=== PATIENT | female | born 1995 | race African-American/Black ===

== ENCOUNTER 2020-08-03 09:30 | Emergency (ER) | payer OTHER ==
[2020-08-03 10:48] LABS: #Eosinphils 0.1 10x3/uL (0.0-0.5); #Monocytes 0.7 10x3/uL (0.0-1.1); #Neutrophils 4.3 10x3/uL (1.5-8.4); %Basophils 0.4 % (0.0-2.0); %Eosinophils 1.2 % (0.0-6.0); %Lymphocytes 24.4 % (18.0-47.0); %Monocytes 10.4 % (0.0-10.0); %Neutrophils 63.3 % (40.0-75.0); Hemoglobin 11.2 g/dL (12.0-15.5); Mean Corpuscular HGB CONC 31.6 g/dL (32.0-36.0); Mean Corpuscular Volume 72.8 fl (81.6-98.3); Mean Platelet Volume 9.9 fl (7.4-10.4); Platelet Count 295 10x3/uL (150-450); RBC Distribution Width 17.2 % (11.5-14.5); Red Blood Cell (RBC) Count 4.86 10x6/uL (3.90-5.03); White Blood Cell (WBC) Count 6.8 10x3/uL (3.5-10.5)
[2020-08-03 11:19] LABS: ALT (SGPT) 12 U/L (8-55); AST (SGOT) 22 U/L (5-34); Albumin 4.2 g/dL (3.5-5.0); Alkaline Phosphatase 79 U/L (40-110); Anion Gap 15 mmol/L (10-20); BUN (Urea Nitrogen) 6 mg/dL (7.0-18.7); Bilirubin, Total 0.5 mg/dL (0.2-1.2); Calc. Creatinine Clearance 0 mL/min (70-130); Calcium 9.7 mg/dL (7.8-10.44); Carbon Dioxide 22 mmol/L (22-29); Chloride 103 mmol/L (98-107); Glucose 87 mg/dL (70-105); Potassium 3.8 mmol/L (3.5-5.1); Protein, Total 8.2 g/dL (6.0-8.3); Sodium 136 mmol/L (136-145)
== END 2020-08-03 11:50 | disposition home or self-care (01) ==
LOC: CSHERS 09:30
DX: O21.9 Vomiting of pregnancy, unspecified (principal); Z20.822 Contact with and (suspected) exposure to COVID-19; O99.011 Anemia complicating pregnancy, first trimester; Z3A.08 8 weeks gestation of pregnancy
CPT/HCPCS: 80053; 85025; 99284

== ENCOUNTER 2020-12-18 11:47 | Day surgery (SDC) | payer OTHER ==
[2020-12-18] MEDS ORDERED: hydrALAZINE 20 MG/ML VIAL SLOW IVP PRN ×2 (12:39→13:00)
[2020-12-18] MEDS ORDERED: Ondansetron PF 4 MG/2 ML Vial IVP PRN (12:40)
[2020-12-18] MEDS ORDERED: Promethazine 25 MG TAB PO PRN (12:40)
[2020-12-18] MEDS ORDERED: Lactated Ringer's 1,000 ML IV SCH (12:45)
[2020-12-18] MEDS ORDERED: Ondansetron ODT 4 MG TAB SL PRN (12:47)
[2020-12-19 01:32] LABS: SARS-CoV-2 PCR by NAA Not Detected (NotDetected)
== END 2020-12-18 17:44 | disposition home health service (06) ==
LOC: CSHLD/OP 11:47
PROVIDERS: ATTEND Family Medicine
DX: O99.891 Other specified diseases and conditions complicating pregnancy (principal); O99.283 Endocrine, nutritional and metabolic diseases complicating pregnancy, third trimester; R11.2 Nausea with vomiting, unspecified; E86.0 Dehydration; Z3A.28 28 weeks gestation of pregnancy; Z20.822 Contact with and (suspected) exposure to COVID-19; Z79.899 Other long term (current) drug therapy
CPT/HCPCS: J2405; U0003; U0005

== ENCOUNTER 2021-02-22 22:41 | Day surgery (SDC) | payer OTHER ==
[2021-02-22 23:21] VITALS: BMI 45.3
[2021-02-22 23:51] LABS: Fetal Membranes Rupture No Membranes Rupture (No Rupture)
[2021-02-23] MEDS ORDERED: hydrALAZINE 20 MG/ML VIAL SLOW IVP PRN (00:33)
== END 2021-02-23 00:13 | disposition home or self-care (01) ==
LOC: CSHLD/OP 22:41
PROVIDERS: ATTEND Family Medicine
DX: O99.891 Other specified diseases and conditions complicating pregnancy (principal); N89.8 Other specified noninflammatory disorders of vagina; Z3A.37 37 weeks gestation of pregnancy
CPT/HCPCS: 84112; 87480; 87510; 87660; 99285

== ENCOUNTER 2021-02-27 10:31 | Outpatient (CLI) | payer OTHER ==
[2021-02-27 17:38] LABS: SARS-CoV-2 PCR by NAA Not Detected (NotDetected)
== END 2021-02-27 10:32 | disposition home or self-care (01) ==
LOC: CSHLAB 10:31
PROVIDERS: ATTEND Family Medicine
DX: Z01.812 Encounter for preprocedural laboratory examination (principal); Z20.822 Contact with and (suspected) exposure to COVID-19
CPT/HCPCS: U0003; U0005

== ENCOUNTER 2021-03-02 08:19 | Inpatient (IN) | payer OTHER ==
[2021-03-02] MEDS ORDERED: Lidocaine 1% (PF) 30 ML VIAL SC PRN (11:03)
[2021-03-02] MEDS ORDERED: Methylergonovine 0.2 MG/ML VIAL IM PRN (11:03)
[2021-03-02] MEDS ORDERED: Butorphanol Tartrate 1 MG/ML VIAL SLOW IVP PRN (11:03)
[2021-03-02] MEDS ORDERED: Carboprost 250 MCG/ML AMP IM PRN (11:03)
[2021-03-02] MEDS ORDERED: NS w/ Oxytocin 30 units 500 ML IV SCH ×2 (11:03)
[2021-03-02] MEDS ORDERED: Ibuprofen 800 MG TAB PO PRN (11:03)
[2021-03-02] MEDS ORDERED: Diphenoxylate HCl/Atropine Tablet PO PRN (11:03)
[2021-03-02] MEDS ORDERED: Lactated Ringer's 1,000 ML IV SCH (11:03)
[2021-03-02] MEDS ORDERED: Promethazine HCl 25 MG/ML VIAL IM PRN ×3 (11:03→23:11)
[2021-03-02] MEDS ORDERED: HYDROcodone/Acetaminophen 5/325 mg Tablet PO PRN ×2 (11:03→23:11)
[2021-03-02] MEDS ORDERED: Acetaminophen 500 MG TAB PO PRN (11:03)
[2021-03-02] MEDS ORDERED: Ondansetron PF 4 MG/2 ML Vial IVP PRN ×3 (11:03→23:11)
[2021-03-02] MEDS ORDERED: NS w/ Oxytocin 30 units 500 ML IVPB SCH (11:03)
[2021-03-02] MEDS ORDERED: Misoprostol 200 MCG TAB PR PRN (11:03)
[2021-03-02] MEDS ORDERED: hydrALAZINE 20 MG/ML VIAL SLOW IVP PRN ×2 (11:03→23:11)
[2021-03-02 11:11] VITALS: BMI 45.4
[2021-03-02] MEDS ORDERED: Lidocaine 2% PF 100 mg/5 ml Syringe ONE (12:00)
[2021-03-02 13:22] LABS: Hemoglobin 10.9 g/dL (12.0-15.5); Mean Corpuscular HGB CONC 33.1 g/dL (32.0-36.0); Mean Corpuscular Hemoglobin 26.5 pg (27.0-33.0); Mean Platelet Volume 10.6 fl (7.4-10.4); Platelet Count 237 10x3/uL (150-450); RBC Distribution Width 16.9 % (11.5-14.5); Red Blood Cell (RBC) Count 4.11 10x6/uL (3.90-5.03); White Blood Cell (WBC) Count 8.2 10x3/uL (3.5-10.5)
[2021-03-02 13:55] LABS: Hep B Surf Ag Non-Reactive S/CO (NonReactive); Syphilis Antibody Nonreactive (Nonreactive); Syphilis Antibody Index 0.04 S/CO (<1.00 Non-Reactive)
[2021-03-02 14:08] LABS: HBSAg Index 0.18 S/CO (0-0.99)
[2021-03-02] MEDS ORDERED: Fentanyl 2 mcg/Bup 0.1% Cadd 100 ML ONE (16:32)
[2021-03-02] MEDS ORDERED: diphenhydrAMINE 50 MG/ML VIAL IVP PRN (16:43)
[2021-03-02] MEDS ORDERED: Lactated Ringer's 500 ML IV PRN (16:43)
[2021-03-02] MEDS ORDERED: Acetaminophen 325 MG TAB PO PRN (16:43)
[2021-03-02] MEDS ORDERED: Hydrocerin (Eucerin) Cream 120 gm Jar TOP PRN (16:43)
[2021-03-02] MEDS ORDERED: Naloxone HCl 0.4 mg/ml Vial IVP PRN ×2 (16:43)
[2021-03-02] MEDS ORDERED: ePHEDrine Sulfate 50 MG/10 ML VIAL SLOW IVP PRN (16:43)
[2021-03-02] MEDS ORDERED: Communication Order-Pharmacy FS SCH (16:45)
[2021-03-02] MEDS ORDERED: Fentanyl 2 mcg/Bupivacaine 0.1% Cassette 100 ML EPIDURAL SCH (16:45)
[2021-03-02] MEDS ORDERED: Bisacodyl 10 MG SUPP PR PRN (23:11)
[2021-03-02] MEDS ORDERED: Benzocaine-Menthol 82.5 ML CAN TOP PRN (23:11)
[2021-03-02] MEDS ORDERED: Milk Of Magnesia 30 ML UDCUP PO PRN (23:11)
[2021-03-02] MEDS ORDERED: diphenhydrAMINE 25 MG CAP PO PRN (23:11)
[2021-03-02] MEDS ORDERED: Boostrix 0.5 ML (Tdap) VIAL IM ONE (23:11)
[2021-03-02] MEDS ORDERED: Preparation H Ointment 28 GM TUBE PR PRN (23:11)
[2021-03-02] MEDS ORDERED: Ibuprofen 800 MG TAB PO SCH (23:30)
[2021-03-03] MEDS: Ferrous Sulfate 325 MG TAB PO SCH ×2 (08:24→16:55)
[2021-03-03] MEDS: HYDROcodone/Acetaminophen 5/325 mg Tablet PO PRN ×2 (08:43→16:07)
[2021-03-03] MEDS: Ibuprofen 800 MG TAB PO SCH ×3 (08:44→21:37)
[2021-03-03] MEDS: Docusate Calcium (SURFAK) 240 MG CAP PO SCH ×2 (08:44→20:58)
[2021-03-04] MEDS: Ibuprofen 800 MG TAB PO SCH ×2 (06:44→13:59)
[2021-03-04] MEDS: Ferrous Sulfate 325 MG TAB PO SCH (07:29)
[2021-03-04 07:57] VITALS: BP 120/61; TEMP 97.9
[2021-03-04] MEDS: Docusate Calcium (SURFAK) 240 MG CAP PO SCH (08:17)
== END 2021-03-04 15:50 | disposition home or self-care (01) | DRG 807 ==
LOC: CSHLD 10:01 → CSHPP 23:45
PROVIDERS: ADMIT Family Medicine; ATTEND Family Medicine
PROC: 0KQM0ZZ Repair Perineum Muscle, Open Approach (ICD-10-PCS; principal; 2021-03-02)
PROC: 10E0XZZ Delivery of Products of Conception, External Approach (ICD-10-PCS; 2021-03-02)
PROC: 3E033VJ Introduction of Other Hormone into Peripheral Vein, Percutaneous Approach (ICD-10-PCS; 2021-03-02)
PROC: 10907ZC Drainage of Amniotic Fluid, Therapeutic from Products of Conception, Via Natural or Artificial Opening (ICD-10-PCS; 2021-03-02)
DX: O99.214 Obesity complicating childbirth (principal); Z37.0 Single live birth; E66.9 Obesity, unspecified; O70.1 Second degree perineal laceration during delivery; Z3A.39 39 weeks gestation of pregnancy
CPT/HCPCS: 36415; 51702; 85027; 86780; 86850; 86900; 86901; 87340; J2590

== ENCOUNTER 2021-04-25 15:42 | Emergency (ER) | payer OTHER ==
[2021-04-25 18:04] LABS: #Eosinphils 0.1 10x3/uL (0.0-0.5); #Monocytes 0.6 10x3/uL (0.0-1.1); #Neutrophils 2.5 10x3/uL (1.5-8.4); %Basophils 0.5 % (0.0-2.0); %Eosinophils 1.9 % (0.0-6.0); %Lymphocytes 15.2 % (18.0-47.0); %Monocytes 14.7 % (0.0-10.0); %Neutrophils 67.4 % (40.0-75.0); Hemoglobin 11.8 g/dL (12.0-15.5); Mean Corpuscular HGB CONC 32.3 g/dL (32.0-36.0); Mean Corpuscular Volume 80.4 fl (81.6-98.3); Mean Platelet Volume 10.1 fl (7.4-10.4); Platelet Count 246 10x3/uL (150-450); RBC Distribution Width 15.5 % (11.5-14.5); Red Blood Cell (RBC) Count 4.54 10x6/uL (3.90-5.03); White Blood Cell (WBC) Count 3.7 10x3/uL (3.5-10.5)
[2021-04-25] MEDS ORDERED: Ketorolac Tromethamine 30 MG/ML VIAL ONE (18:37)
[2021-04-26 16:42] LABS: SARS-CoV-2 PCR by NAA DETECTED (NotDetected)
== END 2021-04-25 18:42 | disposition home or self-care (01) ==
LOC: CSHERS 15:42
DX: U07.1 COVID-19 (principal); N93.9 Abnormal uterine and vaginal bleeding, unspecified; D64.9 Anemia, unspecified
CPT/HCPCS: 36415; 85025; 96372; 99284; J1885; U0003; U0005

== ENCOUNTER 2021-05-05 21:38 | Emergency (ER) | payer OTHER | END 2021-05-05 23:05 | disposition home or self-care (01) | LOC: CSHERS 21:38 | DX: U07.1 COVID-19 (principal); D64.9 Anemia, unspecified | CPT/HCPCS: 99283 ==

== ENCOUNTER 2023-02-09 16:49 | Emergency (ER) | payer OTHER ==
[2023-02-09] MEDS ORDERED: Ketorolac Tromethamine 30 MG/ML VIAL ONE (17:40)
[2023-02-09 18:39] LABS: #Basophils 0.1 10x3/uL (0.0-0.2); #Eosinphils 0.2 10x3/uL (0.0-0.5); #Monocytes 0.6 10x3/uL (0.0-1.1); #Neutrophils 6.9 10x3/uL (1.5-8.4); %Basophils 0.5 % (0.0-2.0); %Eosinophils 2.2 % (0.0-6.0); %Monocytes 6.2 % (0.0-10.0); %Neutrophils 70.8 % (40.0-75.0); Hematocrit 32.1 % (34.9-44.5); Hemoglobin 10.1 g/dL (12.0-15.5); Mean Corpuscular HGB CONC 31.5 g/dL (32.0-36.0); Mean Corpuscular Hemoglobin 21.8 pg (27.0-33.0); Mean Corpuscular Volume 69.2 fl (81.6-98.3); Platelet Count 376 10x3/uL (150-450); Red Blood Cell (RBC) Count 4.64 10x6/uL (3.90-5.03); White Blood Cell (WBC) Count 9.7 10x3/uL (3.5-10.5)
[2023-02-09 18:43] LABS: ALT (SGPT) 16 U/L (8-55); AST (SGOT) 20 U/L (5-34); Albumin 4.6 g/dL (3.5-5.0); Alkaline Phosphatase 75 U/L (40-110); Anion Gap 17 mmol/L (10-20); BUN (Urea Nitrogen) 7 mg/dL (7.0-18.7); Bilirubin, Total 0.3 mg/dL (0.2-1.2); Calc. Creatinine Clearance 0 mL/min (70-130); Calcium 9.8 mg/dL (7.8-10.44); Carbon Dioxide 22 mmol/L (22-29); Chloride 105 mmol/L (98-107); Estimated GFR 94; Glucose 93 mg/dL (70-105); Lipase 29 U/L (8-78); Potassium 3.8 mmol/L (3.5-5.1); Protein, Total 8.6 g/dL (6.0-8.3); Sodium 140 mmol/L (136-145)
[2023-02-09 19:27] LABS: Bilirubin Neg (Negative); Blood, Urine 150 (Negative); Clarity Clear (Clear); Glucose, Urine (Dipstick) Normal (Negative); Ketone, Urine Negative (Negative); Leukocyte 25 (Negative); Nitrite Negative (Negative); Protein, Urine (Dipstick) Negative (Neg-Trace); Specific Gravity, Urine 1.015 (1.005-1.030); Urobilinogen Normal mg/dL (Less than 2)
[2023-02-09 19:31] LABS: Pregnancy Test - Urine (BHCG) Negative (Negative); Pregu Control Background? CLEAR/WHITE (CLR/WHITE); Pregu Control Bar Appear? YES (CONTROL BAR); Specific Gravity 1.015 (1.002-1.036)
[2023-02-09 19:36] LABS: Bacteria/HPF None Seen HPF (None Seen); CAUTI Indications for Culture Pelvic or flank pain; Squamous Epithelial 0-3 HPF (0-3); WBC/HPF 0-3 HPF (0-3)
[2023-02-09 19:37] LABS: Urine Culture Reflex No No
[2023-02-09 20:18] LABS: Microcytosis SLIGHT = 6-15 cells (100X) (0-5/hpf)
== END 2023-02-09 19:38 | disposition home or self-care (01) ==
LOC: CSHERS 16:49
DX: M54.6 Pain in thoracic spine (principal); R10.9 Unspecified abdominal pain
CPT/HCPCS: 36415; 80053; 81001; 81025; 83690; 85025; 93005; J1885